=== PATIENT | female | born 1995 | race Caucasian/White ===

== ENCOUNTER 2019-05-04 01:30 | Inpatient (IN) | payer OTHER ==
[2019-05-04] MEDS ORDERED: SODIUM CHLORIDE 1,000 ML IV STA (18:23)
[2019-05-04] MEDS ORDERED: ONDANSETRON 4 MG/2 ML VIAL IVPB ONE (18:23)
[2019-05-04] MEDS ORDERED: ACETAMINOPHEN 325 MG TABLET (FP) PO ONE (18:23)
[2019-05-04] MEDS ORDERED: ONDANSETRON 4 MG/2 ML VIAL ONE (18:43)
[2019-05-04] MEDS ORDERED: ACETAMINOPHEN 325 MG TABLET (FP) ONE (18:43)
--- NOTE | 2019-05-04 18:48 | PDOC ---
Documentation entered by Edwar Casanova SCRIBE, acting as scribe for Rohit Pandya MD. Rohit Pandya MD: This documentation has been prepared by the Edilberto smith Andrys, SCRIBE, under my direction and personally reviewed by me in its entirety. I confirm that the documentation accurately reflects all work, treatment, procedures, and medical decision making performed by me. History of Present Illness - General Chief Complaint: Pain Stated Complaint: LBA,NAUSEA AND VOMITING History Source: Patient Exam Limitations: No Limitations - History of Present Illness Initial Comments: 05/04/19 18:27 The patient is a 24 year old female with no significant past medical history who presents to the ED with lower back pain for 3 days . Patient states she got a massage on 05/02/19. Since then, she reports sharp right sided lower back pain. She states she developed nausea and nonbloody nonbilious vomiting yesterday. Patient reports her lower back pain progressively worsened and states she was crying in pain earlier today. Upon arrival to the ED, patient has a fever of 100.5F. No fall or trauma. No vaginal bleeding. No incontinence or weakness or numbness. Patient took aleve at 5am this morning with no relief. Denies dysuria or change in urinary frequency. Denies any other symptoms. 05/04/19 18:32 Past History - Past Medical History Allergies/Adverse Reactions: Allergies Allergy/AdvReac Type Severity Reaction Status Date / Time No Known Allergies Allergy Verified 05/04/19 18:21 Home Medications: Ambulatory Orders NK [No Known Home Medication] 05/04/19 Review of Systems - Review of Systems Able to Perform ROS?: Yes Comments:: 05/04/19 18:27 GENERAL/CONSTITUTIONAL: + fever. No weakness. HEAD, EYES, EARS, NOSE AND THROAT: No change in vision. No ear pain or discharge. No sore throat. CARDIOVASCULAR: No chest pain or shortness of breath. RESPIRATORY: No cough, wheezing, or hemoptysis. GASTROINTESTINAL: + nausea, vomiting. No diarrhea or constipation. GENITOURINARY: No dysuria, frequency, or change in urination. MUSCULOSKELETAL: + back pain. No joint or muscle pain. No back pain. SKIN: No rash NEUROLOGIC: No headache, vertigo, loss of consciousness, or change in strength/ sensation. ENDOCRINE: No increased thirst. No abnormal weight change. HEMATOLOGIC/LYMPHATIC: No anemia, easy bleeding, or history of blood clots. ALLERGIC/IMMUNOLOGIC: No hives or skin allergy. *Physical Exam - Vital Signs Last Vital Signs Temp Pulse Resp BP Pulse Ox 100.5 F H 62 19 117/77 100 05/04/19 18:06 05/04/19 18:06 05/04/19 18:06 05/04/19 18:06 05/04/19 18:06 - Physical Exam Comments: 05/04/19 18:27 GENERAL: Awake, alert, and fully oriented, in no acute distress HEAD: No signs of trauma EYES: PERRLA, EOMI, sclera anicteric, conjunctiva clear ENT: Auricles normal inspection, hearing grossly normal, nares patent, oropharynx clear without exudates. Moist mucosa NECK: Normal ROM, supple, no lymphadenopathy, JVD, or masses LUNGS: Breath sounds equal, clear to auscultation bilaterally. No wheezes, and no crackles HEART: Regular rate and rhythm, normal S1 and S2, no murmurs, rubs or gallops ABDOMEN: Soft, nontender, normoactive bowel sounds. No guarding, no rebound. No masses BACK: + Tenderness at the right paravertebral muscle EXTREMITIES: Normal range of motion, no edema. No clubbing or cyanosis. No cords, erythema, or tenderness NEUROLOGICAL: Cranial nerves II through XII grossly intact. Normal speech, normal gait SKIN: Warm, Dry, normal turgor, no rashes or lesions noted. Musculoskeletal: positive: CVA Tenderness (R) (tenderness to right lower paravertebral muscles, no spinous process tenderness, full ROM, strength 5+/5 b/ l in UE and LE, no focal deficits noted) ED Treatment Course - ADDITIONAL ORDERS Additional order review: 05/04/19 18:46 Patient with right lower back pain and fever. CT and labs pending At [address] Ackerman. - RADIOLOGY Radiology Studies Ordered: Category Date Time Status ABDOMEN & PELVIS CT WITH CONTR [CT] Stat CT Scan 05/04/19 18:23 Ordered *DC/Admit/Observation/Transfer Diagnosis at time of Disposition: Back pain Qualifiers: Back pain location: low back pain Chronicity: acute Back pain laterality: right Sciatica presence: without sciatica Qualified Code(s): M54.5 - Low back pain - Discharge Dispostion Condition at time of disposition: Stable - Referrals - Patient Instructions - Post Discharge Activity
[2019-05-04 19:09] LABS: BASO % 0.3 % (0-2.0); EOS % 0.1 % (0-4.5); HEMATOCRIT 39.2 % (32.4-45.2); HEMOGLOBIN 13.2 GM/dl (10.7-15.3); LYMPH % 8.6 % (8-40); MCH 30.3 pg (25.7-33.7); MCHC 33.7 g/dl (32.0-36.0); MEAN PLT VOLUME 9.1 fl (7.5-11.1); MONO % 6.6 % (3.8-10.2); NEUT % 84.4 % (42.8-82.8); PLATELET COUNT 216 K/MM3 (134-434); RBC 4.35 M/mm3 (3.60-5.2); RDW 12.6 % (11.6-15.6); WHITE BLOOD COUNT 15.6 K/mm3 (4.0-10.8)
[2019-05-04 19:20] LABS: ALBUMIN 3.9 g/dl (3.4-5.0); BILIRUBIN,TOTAL 1.1 mg/dl (0.2-1); CALCIUM 8.6 mg/dl (8.5-10); CREATININE 1.1 mg/dl (0.55-1.3); POTASSIUM 3.6 mmol/L (3.5-5.1); TOT PROT 6.9 g/dl (6.4-8.2)
[2019-05-04 19:20] LABS: EPITHELIAL CELLS FEW /hpf
[2019-05-04] MEDS ORDERED: ACETAMINOPHEN 1000 MG/100 ML VIAL (NON FORMULARY) IVPB ONE (19:31)
[2019-05-04] MEDS ORDERED: ACETAMINOPHEN INJECTION 100 ML IVPB ONE (19:32)
[2019-05-04] MEDS ORDERED: CEFTRIAXONE 1 GM in DEXTROSE 5%-WATER - 100 ML IVPB ONE (22:36)
[2019-05-04] MEDS ORDERED: cefTRIAXone SODIUM 1 GM VIAL ONE (22:39)
--- NOTE | 2019-05-04 22:43 | PDOC ---
*Physical Exam - Vital Signs Last Vital Signs Temp Pulse Resp BP Pulse Ox 100.5 F H 62 19 117/77 100 05/04/19 18:06 05/04/19 18:06 05/04/19 18:06 05/04/19 18:06 05/04/19 18:06 - Physical Exam Comments: 05/04/19 22:48 Vitals: Triage Vital signs reviewed General Appearance: no acute distress, well nourished well developed, Head: Atraumatic, Chest Wall: Nontender Cardiac: Regular rate and rhythym, no murmurs, no rubs, no gallops, Lungs: Clear to auscultation bilateral, good air movement bilaterally, Abdomen: Soft, non distended, normal bowel sounds, +right CVA TTP, mild RLQ TTQ , no rebound no guarding Extremities: Full range of motion to all extremities, no cyanosis, clubbing, or edema Skin: Warm and dry, no rashes or lesions, no rash, no petechiae Psych: normal mood, normal affect ED Treatment Course - LABORATORY CBC & Chemistry Diagram: 05/04/19 19:00 05/04/19 19:00 - ADDITIONAL ORDERS Additional order review: Laboratory Results 05/04/19 05/04/19 05/04/19 19:00 19:00 19:00 Sodium 136 Potassium 3.6 Chloride 105 Carbon Dioxide 22 Anion Gap 9 BUN 14.0 Creatinine 1.1 Est GFR (CKD-EPI)AfAm 80.81 Est GFR (CKD-EPI)NonAf 69.72 Random Glucose 102 Calcium 8.6 Total Bilirubin 1.1 H AST 22 ALT 19 Alkaline Phosphatase 54 Creatine Kinase 85 Total Protein 6.9 Albumin 3.9 Urine Color Urine Appearance Urine pH Urine Protein Urine Glucose (UA) Urine Ketones Urine Blood Urine Nitrite Urine Bilirubin Urine Urobilinogen Ur Leukocyte Esterase Urine RBC Urine WBC Ur Transition Epith Cell Urine Bacteria POC Urine HCG, Qual Negative 05/04/19 18:50 Sodium Potassium Chloride Carbon Dioxide Anion Gap BUN Creatinine Est GFR (CKD-EPI)AfAm Est GFR (CKD-EPI)NonAf Random Glucose Calcium Total Bilirubin AST ALT Alkaline Phosphatase Creatine Kinase Total Protein Albumin Urine Color Yellow Urine Appearance Slightly Urine pH 6.5 Urine Protein Trace Urine Glucose (UA) Negative Urine Ketones Negative Urine Blood 3+ H Urine Nitrite Negative Urine Bilirubin Negative Urine Urobilinogen 0.2 Ur Leukocyte Esterase Negative Urine RBC 10-20 Urine WBC 0-2 Ur Transition Epith Cell Few Urine Bacteria Few POC Urine HCG, Qual 05/04/19 19:00 RBC 4.35 MCV 90.0 MCHC 33.7 RDW 12.6 MPV 9.1 Neutrophils % 84.4 H Lymphocytes % 8.6 Monocytes % 6.6 Eosinophils % 0.1 Basophils % 0.3 - Medications Given in the ED: ED Medications Discontinued Medications Generic Name Dose Route Start Last Admin Trade Name Joseph PRN Reason Stop Dose Admin Acetaminophen 650 mg 05/04/19 18:23 05/04/19 19:29 Tylenol - PO 05/04/19 18:24 Not Given ONCE ONE Acetaminophen 1,000 mg 05/04/19 19:31 05/04/19 19:35 Ofirmev Injection - IVPB 05/04/19 19:32 1,000 mg ONCE ONE Administration Sodium Chloride 1,000 mls @ 1,000 mls/hr 05/04/19 18:23 05/04/19 18:49 Normal Saline - IV 05/04/19 19:22 1,000 mls/hr ASDIR STA Administration Ondansetron HCl 4 mg 05/04/19 18:23 05/04/19 18:49 Zofran Injection IVPB 05/04/19 18:24 4 mg ONCE ONE Administration Medical Decision Making - Medical Decision Making 05/04/19 22:51 Patient signed out to me pending CAT scan Sudden onset right low back discomfort with low-grade fever and elevated white blood cell count on laboratory analysis On examination patient does not have an acute abdomen but does have CVA tenderness to palpation Her CAT scan demonstrates right-sided hydro-with an 8 x 5 mm stone given fever and elevated white blood cell count concern for infected stone Urology consult did at 10:[address] Marie patient will require stent in the morning we'll cover with IV antibiotics in the meantime Patient made nothing by mouth after midnight. We'll admit to hospitalist for further management urologic consultation and definitive management in the a.m. *DC/Admit/Observation/Transfer Diagnosis at time of Disposition: Renal stone Back pain Qualifiers: Back pain location: low back pain Chronicity: acute Back pain laterality: right Sciatica presence: without sciatica Qualified Code(s): M54.5 - Low back pain - Discharge Dispostion Condition at time of disposition: Stable Decision to Admit order: Yes - Referrals - Patient Instructions - Post Discharge Activity
[2019-05-04] MEDS ORDERED: SODIUM CHLORIDE 0.9% 1000 ML INFUS.BAG IV ONE (22:50)
[2019-05-04] MEDS ORDERED: KETOROLAC TROMETHAMINE 30 MG/1 ML VIAL IVPUSH ONE (23:11)
[2019-05-04] MEDS ORDERED: KETOROLAC TROMETHAMINE 30 MG/1 ML VIAL ONE (23:16)
--- NOTE | 2019-05-04 23:42 | HP ---
CHIEF COMPLAINT:right lower back pain with nausea and vomiting for 3 days PCP: HISTORY OF PRESENT ILLNESS: 24 year old female with history of scoliosis who presents with right lower back pain associated with nausea and vomiting for 3 days. She was found to have a fever of 100.5 with chills in the ER and treated with IV tylenol. She was found to have a WBC of 15.[address] scan of abdomen demonstrated a 8.5 X 5 mm infected renal stone. Urology- Dr. Marie was consulted and plan is for a renal stone placement tomorrow. She is being transferred to [facility] for further medical management. Recent Travel:denies PAST MEDICAL HISTORY: scoliosis PAST SURGICAL HISTORY: none Social History: Smoking:no Alcohol:no Drugs:no Family History: Mother has hypertension and a benign brain tumor Father has no medical history Allergies No Known Allergies Allergy (Verified 05/04/19 18:21) HOME MEDICATIONS: Home Medications Medication Instructions Recorded NK [No Known Home Medication] 05/04/19 REVIEW OF SYSTEMS CONSTITUTIONAL: Absent: fever, chills, diaphoresis, generalized weakness, malaise, loss of appetite, weight change HEENT: Absent: rhinorrhea, nasal congestion, throat pain, throat swelling, difficulty swallowing, mouth swelling, ear pain, eye pain, visual changes CARDIOVASCULAR: Absent: chest pain, syncope, palpitations, irregular heart rate, lightheadedness , peripheral edema RESPIRATORY: Absent: cough, shortness of breath, dyspnea with exertion, orthopnea, wheezing, stridor, hemoptysis GASTROINTESTINAL: Absent: abdominal pain, abdominal distension, lower back pain, nausea, vomiting , diarrhea, constipation, melena, hematochezia GENITOURINARY: Absent: dysuria, frequency, urgency, hesitancy, hematuria, flank pain, genital pain MUSCULOSKELETAL: Absent: myalgia, arthralgia, joint swelling, back pain, neck pain SKIN: Absent: rash, itching, pallor HEMATOLOGIC/IMMUNOLOGIC: Absent: easy bleeding, easy bruising, lymphadenopathy, frequent infections ENDOCRINE: Absent: unexplained weight gain, unexplained weight loss, heat intolerance, cold intolerance NEUROLOGIC: Absent: headache, focal weakness or paresthesias, dizziness, unsteady gait, seizure, mental status changes, bladder or bowel incontinence PSYCHIATRIC: Absent: anxiety, depression, suicidal or homicidal ideation, hallucinations. PHYSICAL EXAMINATION Vital Signs - 24 hr 05/04/19 05/04/1905/04/19 18:06 22:45 22:58 Temperature 100.5 F H 98.9 F 98.9 F Pulse Rate 62 Pulse Rate [ 63 63 Apical] Respiratory 19 18 Rate Blood Pressure 117/77 Blood Pressure 112/75 [Right Arm] O2 Sat by Pulse 100 100 100 Oximetry (%) 05/04/19 23:26 Temperature 99 F Pulse Rate Pulse Rate [ Apical] Respiratory Rate Blood Pressure Blood Pressure [Right Arm] O2 Sat by Pulse Oximetry (%) GENERAL: awake, alert, and fully oriented, no acute distress HEAD: normal with no signs of trauma EYES: Pupils equal, round and reactive to light, extraocular movements intact, sclera anicteric, conjunctiva clear. No lid lag EARS, NOSE, THROAT: ears normal, nares patent NECK: normal range of motion, supple LUNGS: breath sounds equal and clear to auscultation bilaterally no wheezes and no crackles no accessory muscle use HEART: reular rate and rhythm normal S1 and S2 ABDOMEN: soft, mild tenderness to RLQ, not distended, normoactive bowel sounds, no guarding MUSCULOSKELETAL: normal range of motion at all joints no0 bony deformities or tenderness UPPER EXTREMITIES: 2+ pulses, warm, well-perfused no cyanosis no peripheral edema LOWER EXTREMITIES: 2+ pulses, warm, well-perfused. No calf tenderness no peripheral edema NEUROLOGICAL: nonfocal normal speech PSYCHIATRIC: cooperative good eye contact appropriate mood and affect SKIN: warm, dry, normal turgor, no rashes or lesions noted, normal capillary refill Laboratory Results - last 24 hr 05/04/19 05/04/19 05/04/19 18:50 19:00 19:00 WBC 15.6 H RBC 4.35 Hgb 13.2 Hct 39.2 MCV 90.0 MCH 30.3 MCHC 33.7 RDW 12.6 Plt Count 216 MPV 9.1 Absolute Neuts (auto) 13.3 Neutrophils % 84.4 H Lymphocytes % 8.6 Monocytes % 6.6 Eosinophils % 0.1 Basophils % 0.3 Sodium 136 Potassium 3.6 Chloride 105 Carbon Dioxide 22 Anion Gap 9 BUN 14.0 Creatinine 1.1 Est GFR (CKD-EPI)AfAm 80.81 Est GFR (CKD-EPI)NonAf 69.72 Random Glucose 102 Calcium 8.6 Total Bilirubin 1.1 H AST 22 ALT 19 Alkaline Phosphatase 54 Creatine Kinase Total Protein 6.9 Albumin 3.9 Urine Color Yellow Urine Appearance Slightly Urine pH 6.5 Urine Protein Trace Urine Glucose (UA) Negative Urine Ketones Negative Urine Blood 3+ H Urine Nitrite Negative Urine Bilirubin Negative Urine Urobilinogen 0.2 Ur Leukocyte Esterase Negative Urine RBC 10-20 Urine WBC 0-2 Ur Transition Epith Cell Few Urine Bacteria Few POC Urine HCG, Qual 05/04/19 05/04/19 19:00 19:00 WBC RBC Hgb Hct MCV MCH MCHC RDW Plt Count MPV Absolute Neuts (auto) Neutrophils % Lymphocytes % Monocytes % Eosinophils % Basophils % Sodium Potassium Chloride Carbon Dioxide Anion Gap BUN Creatinine Est GFR (CKD-EPI)AfAm Est GFR (CKD-EPI)NonAf Random Glucose Calcium Total Bilirubin AST ALT Alkaline Phosphatase Creatine Kinase 85 Total Protein Albumin Urine Color Urine Appearance Urine pH Urine Protein Urine Glucose (UA) Urine Ketones Urine Blood Urine Nitrite Urine Bilirubin Urine Urobilinogen Ur Leukocyte Esterase Urine RBC Urine WBC Ur Transition Epith Cell Urine Bacteria POC Urine HCG, Qual Negative ASSESSMENT/PLAN: 24 year old female with history of scoliosis who presented with right lower back pain associated with nausea and vomiting for 3 days. She was found to have a fever of 100.5 with chills in the ER and treated with IV tylenol. She was found to have a WBC of 15.[address] scan of abdomen demonstrated hydronephrosis with a 8.5 X 5 mm infected renal stone and she was treated with Rocephin 1 gram. Urology- Dr. Marie was consulted and plan is for a renal stone placement tomorrow. She is being transferred to [facility] for further medical management. #1 Hydronephrosis with Renal Stone Workup with CT scan of abdomen with hydronephrosis and 8.5 X 5 mm infected renal stone, febrile with leukocytosis, UA with 3+ blood negative leukoesterase or nitrite, creatinine 1.1.Received one dosage of Rocephin 1gm. Urology consulted - Dr. Marie Plan for renal stent placement tomorrow NPO after midnight Continue with IV Rocephin Infectious Diseases- Dr. Funes consulted Visit type - Emergency Visit Emergency Visit: Yes Care time: The patient presented to the Emergency Department on the above date and was hospitalized for further evaluation of their emergent condition. - New Patient This patient is new to me today: Yes Date on this admission: 05/04/19 - Critical Care Critical Care patient: No
[2019-05-04] MEDS ORDERED: ACETAMINOPHEN 325 MG TABLET (FP) PO PRN (23:45)
[2019-05-04] MEDS ORDERED: DEXTROSE 5%-NORMAL SALINE 1,000 ML IV SCH (23:45)
[2019-05-05 05:12] VITALS: BMI 19.8
--- NOTE | 2019-05-05 08:17 | PN ---
Progress Note, Physician Chief Complaint: right lower back pain with nausea and vomiting for 3 days, renal stone History of Present Illness: HISTORY OF PRESENT ILLNESS: 24 year old female with history of scoliosis who presents with right lower back pain associated with nausea and vomiting for 3 days. She was found to have a fever of 100.5 with chills in the ER and treated with IV tylenol. She was found to have a WBC of 15.[address] scan of abdomen demonstrated a 8.5 X 5 mm infected renal stone. Urology- Dr. Marie was consulted and plan is for a renal stone placement tomorrow. She is being transferred to [facility] for further medical management. - Current Medication List Current Medications: Active Medications Acetaminophen (Tylenol -) 650 mg PO Q4H PRN PRN Reason: MODERATE PAIN Dextrose/Sodium Chloride (D5-Ns -) 1,000 mls @ 75 mls/hr IV ASDIR [facility] Last Admin: 05/05/19 00:23 Dose: 75 mls/hr Ceftriaxone Sodium 1 gm/ (Dextrose) 50 mls @ 100 mls/hr IVPB DAILY [facility] - Objective Vital Signs: Vital Signs Temperature 98.3 F 05/05/19 06:00 Pulse Rate 53 L 05/05/19 06:00 Respiratory Rate 20 05/05/19 06:00 Blood Pressure 92/53 L 05/05/19 06:00 O2 Sat by Pulse Oximetry (%) 98 05/05/19 01:30 Constitutional: Yes: Well Nourished, No Distress, Mild Distress (secondary to pain) Eyes: Yes: WNL, Conjunctiva Clear, EOM Intact HENT: Yes: WNL, Atraumatic, Normocephalic Neck: Yes: WNL, Supple, Trachea Midline Cardiovascular: Yes: WNL, Regular Rate and Rhythm Respiratory: Yes: WNL, Regular, CTA Bilaterally Gastrointestinal: Yes: WNL, Normal Bowel Sounds, Soft ...Rectal Exam: Yes: Deferred Genitourinary: Yes: WNL, CVA Tenderness - Right Breast(s): Yes: WNL Musculoskeletal: Yes: Back Pain (seconadry to renal stone) Extremities: Yes: WNL Edema: No Peripheral Pulses WNL: Yes Integumentary: Yes: WNL Neurological: Yes: WNL, Alert, Oriented ...Motor Strength: WNL, LUE Psychiatric: Yes: WNL, Alert, Oriented Labs: CBC, BMP 05/04/19 19:00 05/04/19 19:00 Problem List - Problems (1) Renal stone Assessment/Plan: plan for cystoscopty with renal stent placeement with Dr Marie CT scan of abdomen with hydronephrosis and 8.5 X 5 mm infected renal stone c/w pain managment c/w abc rocpehin Code(s): N20.0 - CALCULUS OF KIDNEY (2) Pain Assessment/Plan: pain managment with toradol will reassess after surgery Code(s): R52 - PAIN, UNSPECIFIED (3) Prophylactic measure Assessment/Plan: FEN mainatin IVF while NPO resume reg diet post op monitor electrolytes DVT ambulatory Dispo maintain as inpatient full code discharge planning, possible DC tmrw Code(s): Z29.9 - ENCOUNTER FOR PROPHYLACTIC MEASURES, UNSPECIFIED (4) Leukocytosis Assessment/Plan: afebrile monitor temp c/w abx trend wbc appreciate ID consultation Code(s): D72.829 - ELEVATED WHITE BLOOD CELL COUNT, UNSPECIFIED Visit type - Emergency Visit Emergency Visit: Yes ED Registration Date: 05/04/19 Care time: The patient presented to the Emergency Department on the above date and was hospitalized for further evaluation of their emergent condition. - New Patient This patient is new to me today: Yes Date on this admission: 05/05/19 - Critical Care Critical Care patient: No - Discharge Referral Referred to [facility] No
--- NOTE | 2019-05-05 08:27 | CON.GU ---
Consult Consult Specialty:: Reason for Consultation:: R ureteral calculus - History of Present Illness Chief Complaint: R flank pain History of Present Illness: 24 year old female with history of scoliosis who presents with right lower back pain associated with nausea and vomiting for 3 days. She was found to have a fever of 100.5 with chills in the ER and treated with IV tylenol. She was found to have a WBC of 15.[address] scan of abdomen demonstrated a 8.5 X 5 mm infected renal stone. Urology- Dr. Marie was consulted and plan is for a ureteral stent placement tomorrow. She is being transferred to [facility] for further medical management. Recent Travel:denies - History Source History Provided By: Patient, Medical Record Limitations to Obtaining History: No Limitations - Past Medical History ...LMP: 04/04/19 ...: No - Alcohol/Substance Use Hx Alcohol Use: No - Smoking History Smoking history: Never smoked Have you smoked in the past 12 months: No Home Medications - Allergies Allergies/Adverse Reactions: Allergies Allergy/AdvReac Type Severity Reaction Status Date / Time No Known Allergies Allergy Verified 05/04/19 18:21 - Home Medications Home Medications: Ambulatory Orders NK [No Known Home Medication] 05/04/19 Physical Exam- Vital Signs: Vital Signs Temperature 98.3 F 05/05/19 06:00 Pulse Rate 53 L 05/05/19 06:00 Respiratory Rate 20 05/05/19 06:00 Blood Pressure 92/53 L 05/05/19 06:00 O2 Sat by Pulse Oximetry (%) 98 05/05/19 01:30 Gastrointestinal: Yes: Tenderness Renal/: Yes: CVA Tenderness - Right Labs: CBC, BMP 05/04/19 19:00 05/04/19 19:00 Imaging - Results Cat Scan: Report Reviewed Problem List - Problems (1) Ureteral calculus, right Assessment/Plan: cysto R JJ stent insertion Code(s): N20.1 - CALCULUS OF URETER (2) UTI (urinary tract infection) Assessment/Plan: ur cx, iv abxs Code(s): N39.0 - URINARY TRACT INFECTION, SITE NOT SPECIFIED
[2019-05-05] MEDS ORDERED: cefTRIAXone SODIUM 1 GM VIAL ONE (09:21)
[2019-05-05] MEDS ORDERED: DEXTROSE 5%-WATER - 50 ML IVPB ONE (09:22)
[2019-05-05] MEDS ORDERED: ONDANSETRON 4 MG/2 ML VIAL IVPUSH ONE (09:30)
[2019-05-05] MEDS ORDERED: CEFTRIAXONE 1,000 MG in DEXTROSE 5%-WATER - 50 ML IVPB SCH (10:00)
[2019-05-05] MEDS ORDERED: CEFTRIAXONE 1 GM in DEXTROSE 5%-WATER - 50 ML IVPB SCH (10:00)
--- NOTE | 2019-05-05 11:06 | PN ---
Progress Note (short form) - Note Progress Note: ID CONSULT DICTATED R NEPHROLITHIASIS FEVER/ LEUKOCYTOSIS R/O SEPSIS SECONDARY TO SOURCE AWAIT C/S CONTINUE EMPIRIC [id number]
[2019-05-05] MEDS ORDERED: IOHEXOL 300 MG/ML INFUS..BTL IV ONE ×2 (13:12→15:10)
[2019-05-05] MEDS ORDERED: PROPOFOL 20 ML ONE (14:38)
[2019-05-05] MEDS ORDERED: MIDAZOLAM HCL 2 MG/2 ML SINGLE DOSE VIAL ONE (14:38)
--- NOTE | 2019-05-05 14:53 | OP ---
Operative Note - Note: Operative Date: 05/05/19 Pre-Operative Diagnosis: R ureteral calculus, R hydronephrosis, UTI Operation: cystoscopy R JJ stent insertion Findings: R UVJ calculus Post-Operative Diagnosis: Same as Pre-op Surgeon: Arden Marie Anesthesiologist/PARKING METER COLLECTOR: Juan Tenorio Anesthesia: General Estimated Blood Loss (mls): 0 Drains & Tubes with Location: 6 fr 24 cm R JJ stent insertion Operative Report Dictated: Yes
[2019-05-05] MEDS ORDERED: GENTAMICIN 80MG PREMIX BAG IVPB ONE (15:00)
[2019-05-05] MEDS ORDERED: GENTAMICIN SO4 80 MG/2 ML VIAL ONE (15:05)
[2019-05-05] MEDS ORDERED: LIDOCAINE HCL 2% JELLY 10 ML CARTRIDGE ONE (15:18)
[2019-05-05] MEDS ORDERED: ONDANSETRON 4 MG/2 ML VIAL IVPUSH PRN (15:49)
[2019-05-05] MEDS ORDERED: LACTATED RINGERS SOLUTION 1,000 ML IV SCH (16:45)
[2019-05-05] MEDS ORDERED: DEXTROSE 5%-NORMAL SALINE 1,000 ML IV SCH (17:44)
[2019-05-05] MEDS ORDERED: ACETAMINOPHEN 325 MG TABLET (FP) PO PRN (17:44)
--- NOTE | 2019-05-05 18:12 | CONS ---
INFECTIOUS DISEASE CONSULTATION DATE OF CONSULTATION: DATE OF DICTATION: 05/05/2019 The patient is a 24-year-old female, previously healthy, no significant past medical history, evaluated for fever and leukocytosis. She presented to the hospital with a 3-day history of right flank pain. She was admitted to the hospital on May 04, 2019. The patient had a massage on Sunday, May 02, 2019. Afterwards, she developed right flank and lower back pain associated with nausea and vomiting. The pain became progressively worse. She presented to the emergency room where she was noted to have fever 100.5 and chills. A CAT scan of the abdomen and pelvis was performed and showed right hydronephrosis. She was seen in consultation by Dr. Abel and is scheduled to have a cystoscopy and ureteral stent for right nephrolith. At the present time, she complains of right flank pain. She has no complaints of nausea/vomiting at the present time. Cultures were obtained. She was empirically treated with ceftriaxone. Her temperatures are now normal. White blood cell count elevated. She denies any dysuria or hematuria. No complaints of frequency or urgency. She denies prior history of urinary tract infection. PAST MEDICAL HISTORY: Negative. PAST SURGICAL HISTORY: Negative. ALLERGIES: No known allergies. MEDICATIONS: At the present time include Tylenol, ceftriaxone, Zofran. SOCIAL HISTORY: She lives in the community. She is a nonsmoker, nondrinker. She is . SYSTEMS REVIEW: Neurologic: No loss of consciousness, seizure activity, focal weakness. Cardiac: Negative chest pain or palpitations. Respiratory: Negative cough or sputum production. Gastrointestinal: Positive for nausea and vomiting. No diarrhea. Genitourinary: As per HPI. LABORATORY DATA: White count 15.6; neutrophils 84, lymphocytes 8, monocytes 6; hematocrit 39.2; platelets 216. BUN 14, creatinine 1.1. Urinalysis: White cells 0-2, red cells 10-20. Blood and urine cultures are pending. PHYSICAL EXAMINATION: General: She is awake and alert. She is supine in bed, in no acute distress. She is not acutely toxic appearing. Vital Signs: Temperature is 98.3, T-max 100.5; blood pressure 92/53; pulse 53, regular; respirations 20 per minute. HEENT: Sclerae are anicteric. Heart: Sounds S1, S2. No murmur. Lungs: Clear. Abdomen: Soft. There is some mild right upper quadrant tenderness. There is right CVA tenderness to palpation. Extremities: Negative for edema. IMPRESSION: 1. Right hydronephrosis, likely secondary to obstructing right nephrolith. 2. Fever, leukocytosis; rule out sepsis secondary to genitourinary source. 3. Microscopic hematuria, likely secondary to stone. Await culture results. Empiric antibiotic coverage for community-acquired urinary tract pathogens with ceftriaxone 2 g IV piggyback daily. IV fluid hydration. Will follow. Thank you for the kind referral. MARY FUNK M.D. [id number]
--- NOTE | 2019-05-05 21:52 | OP ---
DATE OF OPERATION: 05/05/2019 PREOPERATIVE DIAGNOSES: Right ureteral calculus, right hydronephrosis, urinary tract infection. POSTOPERATIVE DIAGNOSES: Right ureteral calculus, right hydronephrosis, urinary tract infection. PROCEDURE: Cystoscopy, right double-J stent insertion. SURGEON: Cj Rodas MD SUPPLY CHAIN SYSTEMS MANAGER: None. ANESTHESIA: General via laryngeal mask. ANESTHESIOLOGIST: Juan Tenorio, REF-CRNasim SPECIMENS: None. CULTURES: None. DRAINS: A 6-Vietnamese 24-cm right double-J stent. ESTIMATED BLOOD LOSS: None. COMPLICATIONS: None. DESCRIPTION OF PROCEDURE: Patient was brought in the operating room, placed on the operating table in supine position. After the administration of general anesthesia via laryngeal mask, intravenous antibiotics were administered. Sequential compression devices were placed. Patient was placed in dorsal lithotomy position. The vagina and perineum were prepped and draped in usual sterile manner. A 22-Vietnamese cystoscope was placed into the bladder with the obturator in place. The obturator was removed. Urine was evacuated. The 30-degree telescope was inserted, and cystoscopy was performed. This demonstrated no foreign bodies, tumors, stones, or inflammation. Both ureteral orifices were in their usual location with diminished efflux from the right ureteral orifice. The right ureteral orifice was cannulated with a 0.038 guidewire and advanced to the level of the right renal pelvis under fluoroscopic and direct visual guidance. An open-ended ureteral catheter was inserted into the mid ureter, and guidewire was removed. Retrograde pyelogram was done, demonstrated [id number] right hydronephrosis. The guidewire was replaced. The open-ended ureteral catheter was removed, and a 6-Vietnamese 24-cm right double-J stent was inserted over the guidewire under direct visual and fluoroscopic guidance, leaving 1 coil in the renal pelvis and 1 coil in the bladder. Bladder was emptied, cystoscope removed. She tolerated the procedure well, was awoken from anesthesia in the operating room, transferred to recovery room in stable condition. The suture for the stent was secured to the thigh with a Tegaderm. CJ RODAS M.D. [id number]
[2019-05-06] MEDS ORDERED: PHENAZOPYRIDINE HCL 100 MG TABLET (FP) PO ONE (02:48)
[2019-05-06 07:50] LABS: BASO % 0.2 % (0-2.0); EOS % 0.3 % (0-4.5); HEMATOCRIT 34.8 % (32.4-45.2); HEMOGLOBIN 11.9 GM/dL (10.7-15.3); LYMPH % 14.6 % (8-40); MCH 30.3 pg (25.7-33.7); MCHC 34.3 g/dl (32.0-36.0); MEAN CELL VOLUME 88.5 fl (80-96); MONO % 6.4 % (3.8-10.2); NEUT % 78.5 % (42.8-82.8); PLATELET COUNT 214 K/MM3 (134-434); RBC 3.93 M/mm3 (3.60-5.2); RDW 13.4 % (11.6-15.6); WHITE BLOOD COUNT 11.6 K/mm3 (4.0-10.0)
[2019-05-06 08:00] LABS: ALBUMIN 3.1 g/dl (3.4-5.0); BILIRUBIN,TOTAL 0.4 mg/dL (0.2-1); BLOOD UREA NITROGEN 10.6 mg/dL (7-18); CALCIUM 8.5 mg/dL (8.5-10.1); CREATININE 0.8 mg/dL (0.55-1.3); MAGNESIUM 2.2 mg/dL (1.8-2.4); TOT PROT 6.2 g/dl (6.4-8.2)
[2019-05-06] MEDS ORDERED: CEFTRIAXONE 2 GM in DEXTROSE 5%-WATER 100 ML IVPB SCH (10:00)
[2019-05-06] MEDS ORDERED: DEXTROSE 5%-WATER 100 ML IVPB ONE (10:21)
[2019-05-06 12:43] VITALS: BP 115/53; PULSE 66; TEMP 98.3
--- NOTE | 2019-05-06 12:54 | PN ---
Progress Note, Physician History of Present Illness: POST OP CYSTO/ STENT STILL WITH R FLANK PAIN, DYSURIA NO FEVER/ CHILLS BC, URINE C/S (-) WBC IMPROVED - Current Medication List Current Medications: Active Medications Acetaminophen (Tylenol -) 650 mg PO Q4H PRN PRN Reason: MODERATE PAIN Last Admin: 05/05/19 23:23 Dose: 650 mg Fentanyl (Sublimaze Injection -) 25 mcg IVPUSH [id number] PRN PRN Reason: PAIN-PACU ORDER X 4 DOSES ONLY Dextrose/Sodium Chloride (D5-Ns -) 1,000 mls @ 75 mls/hr IV ASDIR DEBBY Last Admin: 05/06/19 02:29 Dose: 75 mls/hr Ondansetron HCl (Zofran Injection) 4 mg IVPUSH Q6H PRN PRN Reason: NAUSEA AND/OR VOMITING - Objective Vital Signs: Vital Signs Temperature 98.3 F 05/06/19 09:00 Pulse Rate 66 05/06/19 09:00 Respiratory Rate 18 05/06/19 09:00 Blood Pressure 115/53 L 05/06/19 09:00 O2 Sat by Pulse Oximetry (%) 99 05/06/19 09:00 Constitutional: Yes: No Distress Cardiovascular: Yes: Regular Rate and Rhythm, S1, S2 Respiratory: Yes: CTA Bilaterally Gastrointestinal: Yes: Normal Bowel Sounds, Soft, Tenderness, Other (RUQ TENDERNESS) Genitourinary: Yes: CVA Tenderness - Right Edema: No Labs: CBC, BMP 05/06/19 05:41 05/06/19 05:21 Assessment/Plan NEPHROLITHIASIS/ OBSTRUCTIVE UROPATHY S/P CYSTO/ STENT UTI LEUKOCYTOSIS IMPROVED SUBSTITUTE CEFTIN 500MG PO BID X 7D
--- NOTE | 2019-05-06 13:02 | DS ---
Physical Exam: SUBJECTIVE: Patient seen and examined OBJECTIVE: Vital Signs Period Temp Pulse Resp BP Sys/Garcia Pulse Ox Last 24 Hr 97.6 F-968.8 F 51-73 12-19 102-115/49-69 98-100 PHYSICAL EXAM GENERAL: The patient is awake, alert, and fully oriented, in no acute distress. HEAD: Normal with no signs of trauma. EYES: PERRL, extraocular movements intact, sclera anicteric, conjunctiva clear. ENT: Ears normal, nares patent, oropharynx clear without exudates, moist mucous membranes. NECK: Trachea midline, full range of motion, supple. LUNGS: Breath sounds equal, clear to auscultation bilaterally, no wheezes, no crackles, no accessory muscle use. HEART: Regular rate and rhythm, S1, S2 without murmur, rub or gallop. ABDOMEN: Soft, nontender, nondistended, normoactive bowel sounds, no guarding, no rebound, no hepatosplenomegaly, no masses. EXTREMITIES: 2+ pulses, warm, well-perfused, no edema. NEUROLOGICAL: Cranial nerves II through XII grossly intact. Normal speech, gait not observed. PSYCH: Normal mood, normal affect. SKIN: Warm, dry, normal turgor, no rashes or lesions noted. LABS Laboratory Results - last 24 hr 05/06/19 05/06/19 05:21 05:41 WBC 11.6 H RBC 3.93 Hgb 11.9 Hct 34.8 MCV 88.5 MCH 30.3 MCHC 34.3 RDW 13.4 Plt Count 214 MPV 9.0 Absolute Neuts (auto) 9.1 H Neutrophils % 78.5 Lymphocytes % 14.6 Monocytes % 6.4 Eosinophils % 0.3 Basophils % 0.2 Nucleated RBC % 0 Sodium 141 Potassium 4.0 Chloride 109 H Carbon Dioxide 25 Anion Gap 8 BUN 10.6 Creatinine 0.8 Est GFR (CKD-EPI)AfAm 118.76 Est GFR (CKD-EPI)NonAf 102.47 Random Glucose 108 H Calcium 8.5 Magnesium 2.2 Total Bilirubin 0.4 AST 12 L ALT 17 Alkaline Phosphatase 55 Total Protein 6.2 L Albumin 3.1 L HOSPITAL COURSE: Date of Admission:05/04/19 Date of Discharge: 05/06/19 Discharge Summary Reason For Visit: BACK PAIN CALCULUS OF KIDNEY Current Active Problems Back pain (Acute) Leukocytosis (Acute) Pain (Acute) Prophylactic measure (Acute) Renal stone (Acute) UTI (urinary tract infection) (Acute) Ureteral calculus, right (Acute) Condition: Stable - Instructions Diet, Activity, Other Instructions: Continue the antibiotics as ordered: Ceftin 500mg TWICE per Day for 7 more days. Take at 8am and 8pm. Start taking tonight at 8pm. Please follow up with Dr. Marie for stent removal. Thank you for allowing us to care for you Referrals: Arden Marie MD [Staff Physician] - 1 Week Disposition: HOME - Home Medications Comprehensive Discharge Medication List: Ambulatory Orders Cefuroxime Axetil [Ceftin -] 500 mg PO BID #14 tablet 05/06/19 - Discharge Referral Referred to [facility] No
[2019-05-06] MEDS ORDERED: CEFUROXIME AXETIL 500 MG TABLET PO SCH (22:00)
== END 2019-05-06 15:27 | disposition home or self-care (01) | DRG 661 ==
LOC: JER 01:30 → FER 18:00 → OBSVTOIN 23:41 → J8W 23:41 → FER 05-05 01:18 → UNDOADMOB 05-05 01:30 → JER 05-05 01:30 → FER 05-05 01:30 → J8W 05-05 01:30
PROVIDERS: ADMIT Internal Medicine; ATTEND Nurse Practitioner Family
PROC: 0T768DZ Dilation of Right Ureter with Intraluminal Device, Via Natural or Artificial Opening Endoscopic (ICD-10-PCS; principal; 2019-05-05 15:30)
DX: N13.2 Hydronephrosis with renal and ureteral calculous obstruction (principal); N39.0 Urinary tract infection, site not specified; M41.9 Scoliosis, unspecified
CPT/HCPCS: 36415; 74177-TC; 80053; 81003; 81015; 81025; 82550; 83735; 85025; 87040; 87086; 94760; 99284-25; J0131; J7030

== ENCOUNTER 2019-05-16 08:40 | Day surgery (SDC) | payer OTHER ==
--- NOTE | 2019-05-16 09:15 | HP ---
History & Physical Update - History History: No Change - Physical Physical: No Change - Assessment Assessment: No Change - Plan Plan: No Change
--- NOTE | 2019-05-16 09:16 | OP ---
Operative Note - Note: Operative Date: 05/16/19 Pre-Operative Diagnosis: R ureteral calculus Operation: R ureteroscopic laser lithotripsy and JJ stent change Post-Operative Diagnosis: Same as Pre-op Surgeon: Arden Marie Anesthesia: General Specimens Removed: R ureteral calculi, R JJ stent Estimated Blood Loss (mls): 0 Drains & Tubes with Location: 6 fr 24 cm R JJ stent Operative Report Dictated: Yes
[2019-05-16 09:31] VITALS: BMI 19.3
[2019-05-16] MEDS ORDERED: MIDAZOLAM HCL 2 MG/2 ML SINGLE DOSE VIAL ONE (11:00)
[2019-05-16] MEDS ORDERED: PROPOFOL 20 ML ONE ×2 (11:17)
[2019-05-16] MEDS ORDERED: LIDOCAINE HCL/PF 2% SDV 5ML VIAL ONE (11:17)
[2019-05-16] MEDS ORDERED: ceFAZolin SODIUM 1 GM VIAL IVPB ONE (11:28)
[2019-05-16] MEDS ORDERED: LIDOCAINE HCL 2% JELLY 10 ML CARTRIDGE ONE (11:53)
--- NOTE | 2019-05-16 12:42 | OP ---
DATE OF OPERATION: 05/16/2019 PREOPERATIVE DIAGNOSIS: Right renal calculus. POSTOPERATIVE DIAGNOSIS: Right renal calculus. PROCEDURE: Ureteroscopic laser lithotripsy, right double J stent change. SURGEON: Arden Rodas MD AUTO TRANSPORT DRIVER: None. ANESTHESIA: General via laryngeal mask. ANESTHESIOLOGIST: Rohit Jane MD SPECIMENS: Right ureteral calculus and right double J stent. CULTURES: None. DRAINS: 6-Chinese 24 cm right double J stent. ESTIMATED BLOOD LOSS: None. COMPLICATIONS: None. DESCRIPTION OF PROCEDURE: Patient was brought into the operating room. Placed on the operating table in a supine position. After administration of general anesthesia via laryngeal mask, intravenous antibiotics were administered. Sequential compression devices were placed. The patient was placed in the dorsal lithotomy position. The vagina and the perineum were prepped and draped in the usual sterile manner. The suture for the stent was pulled, and the stent was brought through the urethral meatus and cannulated with a 0.038 guidewire, advanced to the level of the right renal pelvis under fluoroscopic guidance. The double J stent was then removed. Sent to Pathology as specimen. The flexible ureteroscope was now introduced alongside the guidewire into the distal ureter where a 4.5-mm stone was visualized. Now using a 365-micron laser fiber, the laser lithotripsy was done. The stone was fragmented into small pieces. They were basketed and removed. Sent to Pathology as specimen. Retrograde pyelogram was done. Demonstrated no additional fragments, no extravasation of contrast, no hydronephrosis. Ureteroscope was advanced to the proximal ureter. The entire course of the ureter was inspected. No additional stones were seen. Now the ureteroscope was removed. Cystoscope was backloaded, and a 6-Chinese 24-cm right double J stent was inserted over the guidewire under direct visual and fluoroscopic guidance leaving 1 coil in the renal pelvis and 1 coil in the bladder. The bladder was emptied. Cystoscope removed. The stent was secured to the thigh with a suture and a Tegaderm. She tolerated the procedure well. Was awoken from anesthesia in the operating room. Transferred to recovery in stable condition. ARDEN RODAS M.D. [id number]
[2019-05-16 15:25] VITALS: TEMP 97.8
[2019-05-16 17:24] VITALS: BP 108/60; PULSE 70
--- NOTE | 2019-05-27 16:02 | PATH ---
Surgical Pathology Report Patient Name: ILYA HANSON Med. Rec. #: [id number] /Age/Gender: 1995 (Age: 24) / F Account: [id number] Location: [facility] Taken: 05/16/2019 Received: 05/16/2019 Reported: 05/27/2019 Physicians: Arden Marie M.D. Specimen(s) Received A: RIGHT URETERAL STENT B: RIGHT URETERAL STONE Clinical History Right ureter calculus Final Diagnosis A. RIGHT URETERAL STENT, REMOVAL: STENT, DESCRIBED (GROSS EXAMINATION ONLY). B. RIGHT URETERAL STONE, REMOVAL: CALCULUS/STONE, DESCRIBED (GROSS EXAMINATION ONLY). Electronically Signed Rima Bain M.D. Gross Description A. Received without fixative, labeled "right ureteral stent" is a 34 cm long portion of stent with a diameter of 0.2 cm. For gross examination only. B. Received without fixative, labeled " right ureteral stone" are two portions of millan-brown stones each up to 0.3 cm in greatest dimension. For gross examination only. AE/05/27/2019 ebram/05/27/2019
== END 2019-05-16 16:30 | disposition home or self-care (01) ==
LOC: JASU-SURG 08:40
PROVIDERS: ATTEND Urology
PROC: 0TF68ZZ Fragmentation in Right Ureter, Via Natural or Artificial Opening Endoscopic (ICD-10-PCS; principal; 2019-05-16 10:00)
PROC: 0T768DZ Dilation of Right Ureter with Intraluminal Device, Via Natural or Artificial Opening Endoscopic (ICD-10-PCS; 2019-05-16 10:00)
DX: N20.1 Calculus of ureter (principal)
CPT/HCPCS: 76000-TC-FY; 84703; 88300-TC; 94760

== ENCOUNTER 2019-08-15 10:35 | Emergency (ER) | payer OTHER ==
--- NOTE | 2019-08-15 10:53 | PDOC ---
History of Present Illness - General Chief Complaint: Chest Pain Stated Complaint: RIGHT CHEST PAIN Time Seen by Provider: 08/15/19 10:51 History Source: Patient Exam Limitations: No Limitations - History of Present Illness Initial Comments: 08/15/19 10:52 HPI 24-year-old female with history of scoliosis, right-sided kidney stone requiring lithotripsy and JJ stent done in April 2019 presenting with right sided chest pain, since last night x over 12 hours. pt describes pain as localized to right chest, worse with laughing and deep breaths; 5/10, nonradiating, nonexertinal. she had taken tylenol last night, no relief. she also tried tums thinking it could be heartburn, no relief. no prior symptoms of similar chest pain denies trauma. no heavy lifting or strenous activity. no prolonged immobilization or travel. no personal or family history of DVT/PE. +OCP use x 3 years; denies , LMP ~2 weeks ago. Denies fever, chills, sore throat, ear pain, eye pain, SOB, palpitation, dizziness, weakness, N, V, D, abdominal pain, bladder and bowel problems, focal weakness/paresthesias, leg swelling/pain, rash. No sick contacts or travel. No new changes in medications. No suspicious food intake Allergies: None Past Medical History/PSH: JJ stent for ureteral stone, scoliosis Social history: Lives with family. No tobacco, ETOH or drug use. Meds: as documented in EMR Family history: none significant for dvt/pe, acs, [place], sudden cardiac deaths Review of systems Constitutional: no fevers or chills. No weakness HEENT: no headache or dizziness. No congestion. No visual/hearing disturbances. CVS: no syncope. +chest pain Resp: no sob. No cough. no wheezing, no hemoptysis. Gastrointestinal: no abdominal pain, nausea, vomiting, diarrhea. Genitourinary: no urinary sx, hematuria. MUSCULOSKELETAL: No joint pain and swelling. No neck or back pain. SKIN: no redness or skin changes, no discharge, no rash. No wounds. Hematologic: no easy bruising/bleeding. NEUROLOGIC: No headache, dizziness, LOC or altered mental status. No weakness, numbness or tingling. Psych: no anxiety or depression Allergic/Immunologic: no allergies All other systems reviewed and negative, or as documented in HPI. Physical exam General: Well appearing, awake and alert, NAD. HEENT: NCAT, PERRL, EOMI, clear conjunctiva, anicteric, moist mucus membranes, clear oropharynx, no oral lesions.. Neck: neck supple, FROM Resp: CTAB, normal and even respirations, no respiratory distress CVS: RRR, no murmurs, 2+ peripheral pulses throughout, no peripheral edema Chest: right anterior chest wall TTP, no crepitus, no skin discoloration, no rashes Abdomen: soft, NTND, no rebound or guarding. Back: nontender, normal inspection and ROM MSK: no edema, LEON x4, ROM intact. No clubbing or cyanosis. normal bulk and tone. Extremities: no calf tenderness or swelling Neuro: alert, oriented appropriately; no focal neurologic deficits Psych: Calm and cooperative Skin: warm and well perfused, cap refill <2 sec, normal color, no rash or skin discoloration. 08/15/19 11:04 08/15/19 11:07 08/15/19 11:09 08/15/19 11:11 Past History - Past Medical History Allergies/Adverse Reactions: Allergies Allergy/AdvReac Type Severity Reaction Status Date / Time No Known Allergies Allergy Verified 05/15/19 16:00 Home Medications: Ambulatory Orders Norgestimate-Ethinyl Estradiol [[id number]-Gr-Epvxzb Tablet] 1 each PO DAILY 08/15/19 COPD: No - Psycho Social/Smoking Cessation Hx Smoking History: Never smoked Have you smoked in the past 12 months: No Hx Alcohol Use: No Drug/Substance Use Hx: No Substance Use Type: None Hx Substance Use Treatment: No Heart Score/ECG Review - History History: Slightly suspicious - Electrocardiogram EKG: Normal - Age Age: </= 45 - Risk Factors Based on the list above the patient has:: No risk factors known - Troponin Troponin: </= normal limit - Score Heart Score - Total: 0 #1 ECG reviewed & interpreted by me at: 10:40 General ECG Interpretation: Sinus Rhythm, Normal Rate, Normal Intervals Compared to previous ECG there are: Previous ECG unavail 08/15/19 10:54 EKG normal sinus rhythm at 78 bpm, no interval abnormalities, narrow QRS, ST and T wave segments and morphology normal. Nonspecific T wave abnormalities ED Treatment Course - LABORATORY CBC & Chemistry Diagram: 08/15/19 11:30 08/15/19 11:30 Medical Decision Making - Medical Decision Making 08/15/19 11:09 Vital Signs Temp Pulse Resp BP Pulse Ox 98.1 F 60 17 102/68 99 08/15/19 10:48 08/15/19 12:15 08/15/19 12:15 08/15/19 12:15 08/15/19 12:15 DDx chest pain: ACS, coronary vasospasm, NSTEMI, arrhythmia, unstable angina, PE , dissection, PUD, esophageal spasm, GERD, gastritis, costochondritis, pneumonia , pleurisy, pericarditis/myocarditis. dehydration, electrolyte/metabolic derangements. No evidence of ACS, pericarditis, myocarditis, pulmonary embolism, pneumothorax , pneumonia, Zoster, or esophageal perforation. Historically not abrupt in onset , tearing or ripping, pulses symmetric, no evidence of aortic dissection. EKG normal sinus rhythm, no interval abnormalities, narrow QRS, ST and T wave segments and morphology normal. Nonspecific T wave abnormalities, unchanged from prior Chest pain HEART score 0 which denotes Low risk and probability for ACS, less than 1% risk for MACE at 4-6 wks also atypical in nature, right sided, reproducible, nonexertional and nonradiating. d dimer to r/o PE, with well's score zero, so low risk, d dimer is appropriate. on ocp use, cannot perc out. 08/15/19 13:20 labs unremarkable, no anemia, lytes normal trop neg, reassuring, less likely cardiac, heart score zero as above dimer is negative, so less likely PE when risk stratified. cxr is clear, normal silhouette, no mass/infection, no edema. pt feels improved with toradol could be costochondritis, as pain is reproducible, atypical in nature, no high risk features to suggest cardiac or cardiopulmonary/vascular pathology no abdominal tenderness, well appearing, nontoxic, tolerating oral intake, no respiratory distress, VS remain normal. cardiac monitoring without events Pt to be discharged in stable condition. Patient and family made aware of clinical impression, treatment recommendations and disposition plan, return precautions discussed (including but not limited to new or persistent/worsening symptoms, pain, fevers, or signs of infection, chest pain, respiratory distress , inability to tolerate oral intake, dehydration, syncope, or neurologic changes ). Follow up with PMD referrals also given, as recommended, follow up information provided, take medications as instructed for duration of time. continue with supportive care, avoid triggers and precipitants. All questions answered to patient's satisfaction and expressed understanding and comfort with this. At the time of discharge, the patient is alert, clinically improved, tolerating po and verbalizes understanding of instructions, satisfied with the care received and felt comfortable with the plan. Patient does not suffer from an acute life-threatening medical condition at this time and is safe for outpatient follow-up. Discharge - Discharge Information Problems reviewed: Yes Clinical Impression/Diagnosis: Chest pain Qualifiers: Chest pain type: unspecified Qualified Code(s): R07.9 - Chest pain, unspecified Condition: Good Disposition: HOME - Admission No - Follow up/Referral Referrals: [facility] [place] [facility] [Provider Group] [facility] [Provider Group] - Patient Discharge Instructions Patient Printed Discharge Instructions: DI for Atypical Chest Pain Additional Instructions: 1) Please follow-up with your primary care doctor in the next 1-2 days. Please call tomorrow for for any urgent issues. you were evaluated in the ED for your chest pain. 2) You were given a copy of the tests performed today. Please bring the results with you and review them with your primary care doctor. Your laboratory / imaging results were normal, including your cardiac enzymes and marker for blood clots. 3) If you have any worsening of symptoms or any other concerns please return to the ED immediately. Return if worsening symptoms including fevers, headache, vomiting, visual or hearing disturbances, abdominal pain, chest pain, shortness of breath, syncope, dehydration, inability to take things by mouth/vomiting, altered mental status, or worsening concerning symptoms. 4) Please continue taking your home medications as directed. you can take ibuprofen or tylenol as needed over the counter for pain control. Stay well hydrated and rest adequately. Make an appointment. If you cannot follow-up with your primary care doctor please return to the ED - Post Discharge Activity
[2019-08-15 10:55] VITALS: TEMP 98.1; BMI 19.1
[2019-08-15] MEDS ORDERED: KETOROLAC TROMETHAMINE 15 MG/ML VIAL IVPUSH ONE (11:51)
[2019-08-15 12:05] LABS: BASO % 0.6 % (0-2.0); EOS % 0.4 % (0-4.5); HEMATOCRIT 41.9 % (32.4-45.2); HEMOGLOBIN 13.7 GM/dl (10.7-15.3); MCH 29.1 pg (25.7-33.7); MCHC 32.6 g/dl (32.0-36.0); MEAN CELL VOLUME 89.2 fl (80-96); MEAN PLT VOLUME 8.9 fl (7.5-11.1); MONO % 4.1 % (3.8-10.2); NEUT % 68.9 % (42.8-82.8); PLATELET COUNT 244 K/MM3 (134-434); RDW 12.4 % (11.6-15.6); WHITE BLOOD COUNT 8.5 K/mm3 (4.0-10.8)
[2019-08-15] MEDS ORDERED: KETOROLAC TROMETHAMINE 15 MG/ML VIAL ONE (12:07)
[2019-08-15 12:12] LABS: BILIRUBIN,TOTAL 0.6 mg/dl (0.2-1); CALCIUM 8.9 mg/dl (8.5-10); CREATININE 0.9 mg/dl (0.55-1.3); POTASSIUM 3.9 mmol/L (3.5-5.1)
[2019-08-15 13:27] VITALS: BP 113/71; PULSE 78
--- NOTE | 2019-08-18 11:59 | EKG ---
Test Reason : Blood Pressure : / mmHG Vent. Rate : 078 BPM Atrial Rate : 078 BPM P-R Int : 150 ms QRS Dur : 092 ms QT Int : 374 ms P-R-T Axes : 073 071 043 degrees QTc Int : 426 ms NORMAL SINUS RHYTHM INCOMPLETE RIGHT BUNDLE BRANCH BLOCK BORDERLINE ECG NO PREVIOUS ECGS AVAILABLE Confirmed by NATALIO PRABHAKAR, LAXMI ([id number]) on 08/18/2019 11:58:54 AM Referred By: Confirmed By:LAXMI LANCE MD
== END 2019-08-15 13:35 | disposition home or self-care (01) ==
LOC: FER 10:35
PROC: 3E0333Z Introduction of Anti-inflammatory into Peripheral Vein, Percutaneous Approach (ICD-10-PCS; principal; 2019-08-15)
DX: R07.9 Chest pain, unspecified (principal)
CPT/HCPCS: 36415; 71046-TC-FY; 80053; 81025; 84484; 85025; 85379; 93005; 99284-25